=== PATIENT | male | born 1995 | race Two or more races ===

== ENCOUNTER 2022-10-23 17:26 | Emergency (ER) | payer OTHER ==
[~2022-10-23] VITALS: Ht 180.3 cm; Wt 140.0 kg
[2022-10-23 18:25] VITALS: BP 129/68
== END 2022-10-23 18:52 | disposition home or self-care (01) ==
LOC: ER 17:26
DX: M54.59 Other low back pain (principal); V59.49XA Driver of pick-up truck or van injured in collision with other motor vehicles in traffic accident, initial encounter; Y93.89 Activity, other specified; Y92.410 Unspecified street and highway as the place of occurrence of the external cause; Y99.8 Other external cause status